=== PATIENT | male | born 1940 | race Caucasian/White ===

== ENCOUNTER 2016-06-18 23:39 | Inpatient (IN) | payer MEDICARE ==
[2016-06-21] MEDS ORDERED: LIPITOR10 MG PO (13:41)
[2016-06-21] MEDS ORDERED: SYNTHROID150 MCG PO (13:42)
[2016-06-21] MEDS ORDERED: METOPROLOL TART25 MG PO (13:45)
[2016-06-21] MEDS ORDERED: JAKAFI20 MG PO (13:46)
[2016-06-21] MEDS ORDERED: NEURONTIN600 MG PO (13:46)
[2016-06-21] MEDS ORDERED: ASPIR 8181 MG PO (13:46)
[2016-06-21] MEDS ORDERED: ISOSORBIDE MONO60 MG PO (13:46)
[2016-06-21] MEDS ORDERED: ZOVIRAX400 MG PO (13:47)
[2016-06-21] MEDS ORDERED: COLACE100 MG PO (13:47)
[2016-06-21] MEDS ORDERED: ROXICODONE5 MG PO (13:47)
[2016-06-21] MEDS ORDERED: ZITHROMAX500 MG PO (13:48)
[2016-06-21] MEDS ORDERED: TAMIFLU75 MG PO (13:48)
== END 2016-06-21 13:07 | disposition home or self-care (01) | DRG 682 ==
LOC: ER 23:39 → MED 06-19 02:31
PROVIDERS: ADMIT Internal Medicine
DX: N17.9 Acute kidney failure, unspecified (principal); J09.X1 Influenza due to identified novel influenza A virus with pneumonia; E87.1 Hypo-osmolality and hyponatremia; C93.10 Chronic myelomonocytic leukemia not having achieved remission; B34.9 Viral infection, unspecified; I25.10 Atherosclerotic heart disease of native coronary artery without angina pectoris; Z98.61 Coronary angioplasty status; E03.9 Hypothyroidism, unspecified; I10 Essential (primary) hypertension; E78.5 Hyperlipidemia, unspecified; Z79.82 Long term (current) use of aspirin; Z79.899 Other long term (current) drug therapy; Z88.1 Allergy status to other antibiotic agents; R09.02 Hypoxemia
CPT/HCPCS: 36415; 87502; J0456; J0696; J1650

== ENCOUNTER 2016-06-18 23:39 | Emergency (ER) | payer MEDICARE | END 2016-06-19 02:30 | disposition critical access hospital (66) | LOC: ER 23:39 | DX: J11.00 Influenza due to unidentified influenza virus with unspecified type of pneumonia (principal); R09.02 Hypoxemia; I25.10 Atherosclerotic heart disease of native coronary artery without angina pectoris; E03.9 Hypothyroidism, unspecified; E78.5 Hyperlipidemia, unspecified; I10 Essential (primary) hypertension; Z91.041 Radiographic dye allergy status; Z79.899 Other long term (current) drug therapy | CPT/HCPCS: 36415; 87502; 96365; 96367; J0456; J0696 ==